=== PATIENT | male | born 1980 | race Two or more races ===

== ENCOUNTER 2020-10-17 20:00 | Emergency (ER) | payer OTHER ==
[~2020-10-17] VITALS: Ht 188 cm; Wt 86.2 kg
--- NOTE | 2020-10-17 20:10 | NUR ---
PT AAOX4. [employer] AND [facility] FOR SI. PT ADMITS TO DRINKING "A LOT OF WINE." [employer] STATED THEY WILL PLACE PT ON A HOLD FOR DANGER TO SELF. PT BELONINGS REMOVED, PLACED IN LOCKER. PT PLACED ON NEEDLE POLISHER AND PULSE OX. VITALS STABLE. PT NOTED TO BE TACHYCARDIC. NO ACUTE DISTRESS NOTED.
--- NOTE | 2020-10-17 20:37 | NUR ---
URINE COLLECTED, SENT TO LAB.
--- NOTE | 2020-10-17 20:37 | NUR ---
[employer] LEFT BACK TO THE STATION, STATED THEY WILL FAX THE 1020 HOLD.
[2020-10-17 20:45] LABS: BASOPHILS # (AUTO) 0.1 /CMM (0.0-0.2); BASOPHILS % (AUTO) 0.7 % (0.0-2.0); EOSINOPHILS % (AUTO) 0.1 % (0.0-6.0); HEMATOCRIT 52 % (39-51); HEMOGLOBIN 17.4 g/dL (13.5-17.5); LYMPHOCYTES # (AUTO) 2.1 /CMM (0.8-4.8); LYMPHOCYTES % (AUTO) 29.7 % (20.0-44.0); MEAN CORPUSCULAR HGB CONC 34 g/dl (31.0-36.0); MEAN CORPUSCULAR VOLUME 97 fL (80-96); MONOCYTES # (AUTO) 0.5 /CMM (0.1-1.30); MONOCYTES % (AUTO) 6.6 % (2.0-12.0); NEUTROPHILS # (AUTO) 4.5 /CMM (1.8-8.9); NEUTROPHILS % (AUTO) 62.9 % (43.0-81.0); PLATELET COUNT (AUTO) 421 /CMM (150-450); RED BLOOD CELL COUNT(AUTO) 5.37 MIL/uL (4.5-6.0); WHITE BLOOD COUNT (AUTO) 7.1 K/uL (4.3-11.0)
[2020-10-17 20:53] LABS: BILIRUBIN,URINE NEGATIVE (NEGATIVE); COLOR,URINE YELLOW (YELLOW); LEUKOCYTE ESTERASE ,URINE NEGATIVE (NEGATIVE); NITRITE, URINE NEGATIVE (NEGATIVE); PROTEIN,URINE NEGATIVE (NEGATIVE); UGLUCOSE NEGATIVE (NEGATIVE); UROBILINOGEN,URINE 0.2 EU/dL (0.2)
[2020-10-17 20:58] LABS: MAGNESIUM 2.4 mg/dL (1.8-2.4)
[2020-10-17] MEDS ORDERED: LORAZEPAM 1 MG TABLET PO ONE (21:00)
[2020-10-17] MEDS ORDERED: LORAZEPAM 1 MG TABLET ONE (21:02)
[2020-10-17 21:06] LABS: ALBUMIN 4.5 g/dL (3.4-5.0); BILIRUBIN,DIRECT 0.2 mg/dL (0.0-0.2); BILIRUBIN,TOTAL 0.4 mg/dL (0.2-1.0); CALCIUM, SERUM 8.6 mg/dL (8.5-10.1); CREATININE 0.9 mg/dL (0.6-1.3); POTASSIUM 3.9 mmol/L (3.5-5.1); TOTAL PROTEIN, SERUM 8.5 g/dL (6.4-8.2)
[2020-10-17 21:13] LABS: BACTERIA,URINE Rare /HPF (None Seen); RBC,URINE 0-2 /HPF (0-2); SQUAMOUS EPITHELIAL CELL,UR Few /HPF (None Seen); WBC,URINE 0-2 /HPF (0-3)
--- NOTE | 2020-10-17 21:14 | NUR ---
JEAN PAULID SWABBED, SENT TO LAB.
--- NOTE | 2020-10-17 21:34 | NUR ---
FRIEND ZENOBIA ADLER
--- NOTE | 2020-10-17 21:51 | NUR ---
NEGATIVE COVID RESULT
[2020-10-17] MEDS ORDERED: CLONIDINE HCL 0.1 MG TABLET PO ONE (22:00)
[2020-10-17] MEDS ORDERED: IV NS 0.9% 1,000 ML IV ONE (22:00)
--- NOTE | 2020-10-17 22:18 | NUR ---
MOTHERS PHONE NUMBER IS .
[2020-10-17] MEDS ORDERED: CLONIDINE HCL 0.1 MG TABLET ONE (22:32)
[2020-10-18] MEDS ORDERED: LORAZEPAM INJ 2 MG/ML VIAL IV ONE (00:30)
[2020-10-18] MEDS ORDERED: IV NS 0.9% 1,000 ML IV ONE (00:30)
[2020-10-18] MEDS ORDERED: LORAZEPAM INJ 2 MG/ML VIAL ONE (00:32)
--- NOTE | 2020-10-18 04:21 | NUR ---
RESTING COMFORTABLY. AWARE OF PLAN OF CARE.
--- NOTE | 2020-10-18 06:15 | NUR ---
MANOHAR BLUE (SISTER) [phone].
--- NOTE | 2020-10-18 07:59 | NUR ---
ASSESSED PT ON BED AWAKE AND ALERT, NOT IN RESPIRATORY DISTRESS, V/S STABLE, KEPT RESTED AND COMFORTABLE. WILL CONTINUE TO MONITOR.
--- NOTE | 2020-10-18 08:30 | NUR ---
CALLED [facility] [employer]ERONAUTICAL INSPECT[facility]. WILL COME IN FOR PATIENT EVAL. ETA 1 HOUR.
--- NOTE | 2020-10-18 08:53 | NUR ---
FAMILY MANOHAR LEFT CONTACT # [phone]
--- NOTE | 2020-10-18 09:54 | NUR ---
ART SNUFF BOX FINISHER AT BEDSIDE FOR EVAL.
[2020-10-18 10:41] VITALS: BP 139/85
--- NOTE | 2020-10-18 10:41 | NUR ---
Patient discharged to home in stable condition. Written and verbal after care instructions given. Patient verbalizes understanding of instruction.
== END 2020-10-18 10:41 | disposition home or self-care (01) ==
LOC: ER 20:03
DX: R45.851 Suicidal ideations (principal); E86.0 Dehydration; F10.129 Alcohol abuse with intoxication, unspecified; Y90.9 Presence of alcohol in blood, level not specified; R74.01 Elevation of levels of liver transaminase levels; Z20.822 Contact with and (suspected) exposure to COVID-19; L71.9 Rosacea, unspecified
CPT/HCPCS: 36415; 80048; 80076; 80299; 80307; 80320; 81001; 82550; 82553; 83735; 85025; 87426; 93005; 96361; 96374; 99285; C9803; J2060; J7030 ×2; G0480